=== PATIENT | male | born 1965 | race Caucasian/White ===

== ENCOUNTER → 2019-12-07 10:39 | Outpatient (CLI) | payer BC, SELFPAY ==
--- NOTE | ~2019-12-07 | XR_ITS ---
XR chest 2V DATE: 12/07/2019 10:54 INDICATION: Hemoptysis TECHNIQUE: PA and lateral chest COMPARISON: 11/22/2018 PA and lateral chest FINDINGS: There is mild patchy groundglass right upper lobe infiltrate along the superolateral aspect of the minor fissure. The lungs are otherwise clear. Normal heart size. No hilar or mediastinal enlargement. No pleural effusion or pulmonary vascular con gestion or pneumothorax. Included skeletal structures are unremarkable. IMPRESSION: Mild right upper lobe infiltrate Reviewed, dictated and finalized at location A. ING CLINICAL DIRECTOR
== END ==
PROVIDERS: PCP Family Medicine; Visit Provider Nurse Practitioner Family
DX: R04.2 Hemoptysis (principal); R91.8 Other nonspecific abnormal finding of lung field
CPT/HCPCS: 71046

== ENCOUNTER → 2020-01-11 17:54 | Outpatient (CLI) | payer BC, SELFPAY ==
--- NOTE | ~2020-01-11 | XR_ITS ---
EXAMINATION: XR chest 2V EXAM DATE: 01/11/2020 18:24 INDICATION: Pneumonia. Some cough. TECHNIQUE: Frontal and lateral projections of the chest obtained and reviewed. Comparison is made to prior examination from 12/07/2019. FINDINGS: The lungs are clear. There are no pleural effusions. The cardiomediastinal silhouette is within normal limits. There is no pneumothorax suspected. The bones and soft tissues are unremarkab le. IMPRESSION: No acute cardiopulmonary findings. Reviewed, dictated and finalized at location A. ICE RN
== END ==
PROVIDERS: PCP Family Medicine; Visit Provider Family Medicine
DX: J18.9 Pneumonia, unspecified organism (principal)
CPT/HCPCS: 71046

== ENCOUNTER 2021-02-14 09:07 | Outpatient (CLI) | payer BC, SELFPAY ==
--- NOTE | 2021-02-14 16:34 | WPDPFTINT ---
PFT Interpretation This is a pulmonary function test with spirometry, plethysmography and diffusing capacity. The test was performed and results interpreted in accordance with the 2019 and 2005 ATS/ERS Task Force guidelines respectively using the Global Lung Function Initiative-2012 reference equations. Patient demonstrated good effort and cooperation. Reproducibility criteria were met. The quality of the pre bronchodilator spirometry maneuver was Grade A. Findings: Spirometry:The contour the inspiratory and expiratory flow tracing are normal. The FVC is 4.53 L, 101% predicted. The FEV1 is 3.60 L, 102% predicted. The FEV1: FVC ratio 79%. Plethysmography: Total lung capacity is 6.22 L, 94% predicted. The functional residual capacity is 2.28 L, 67% predicted. The residual volume is 1.51 L, 74% predicted. Diffusing capacity: The absolute diffusion capacity is 24.6, 86% predicted. The diffusing capacity corrected for alveolar volume is 4.46, 100% predicted. Impression: The spirometry is normal without evidence of an obstructive abnormality. The lung volumes are normal. The diffusing capacity is normal. There are no prior studies for comparison PFT Procedure Performed PFT Procedure Performed Plethysmography (Lung Vol) Diffusing Cap (DLCO) Spirometry w/o Bronchodil
== END 2021-02-14 09:08 | disposition home or self-care (01) ==
PROVIDERS: PCP Family Medicine; Visit Provider Internal Medicine Cardiovascular Disease
DX: R06.00 Dyspnea, unspecified (principal)
CPT/HCPCS: 94375; 94726; 94729

== ENCOUNTER 2024-02-16 08:24 | Outpatient (CLI) | payer BC, SELFPAY ==
--- NOTE | ~2024-02-16 | XR_ITS ---
Clinical Indication: Dyspnea PA and lateral views of the chest: Comparison: None Findings: The lungs are clear, without evidence of focal consolidation or pleural effusion. Cardiome diastinal silhouette is within normal limits. Bones and soft tissues are unremarkable. Impression: Normal chest. Reviewed, dictated and finalized at location . Impression: Normal chest.
== END 2024-02-16 08:25 | disposition home or self-care (01) ==
PROVIDERS: PCP Family Medicine; Visit Provider Physician Assistant
DX: R06.00 Dyspnea, unspecified (principal)
CPT/HCPCS: 71046